=== PATIENT | male | born 1985 | race African-American/Black ===

== ENCOUNTER 2021-10-11 00:33 | Emergency (ER) | payer OTHER ==
[2021-10-11] MEDS ORDERED: Boostrix 0.5 ML (Tdap) VIAL ONE (01:22)
[2021-10-11] MEDS ORDERED: Bacitracin 1 PK ONE (01:22)
== END 2021-10-11 01:45 | disposition still patient (30) ==
LOC: NAV ERS 00:33
DX: S01.01XA Laceration without foreign body of scalp, initial encounter (principal); W22.8XXA Striking against or struck by other objects, initial encounter
CPT/HCPCS: 12001; 90471; 90715